=== PATIENT | female | born 1995 | race Caucasian/White ===

== ENCOUNTER 2023-08-20 12:13 | Emergency (ER) | payer BC, SELFPAY ==
[2023-08-20 12:16] VITALS: BP 135/90
--- NOTE | 2023-08-20 13:55 | ED.GENMED ---
History of Present Illness
<Rosario Okeefe PA-C - Last Filed: 08/20/23 19:34>
General
Chief Complaint: Flank Pain
Source: patient
Exam Limitations: none
Time Seen by Provider: 08/20/23 13:32
Nursing documentation reviewed up to this point in time: agreed with
History of Present Illness
History of Present Illness:
Patient is a 28-year-old female presenting for evaluation of bilateral upper flank pain. Patient states the symptoms began about 4 days ago and she describes it as an intermittent cramping type pain in her bilateral upper flanks, worse with deep
inspiration. She had a low-grade temp yesterday of 100.1F. Patient denies any known inciting trauma. Patient denies any associated chest pain, shortness of breath, lightheadedness, dizziness. Patient denies any current urinary symptoms. Patient
denies any abdominal pain. Patient denies any pain in her lower extremities. Patient does note that about 2 weeks ago she had a few days of urinary frequency and dysuria for which she had a telehealth appointment with her primary care provider who
prescribed a 5-day course of Macrobid. She took 4 days ago but due to nausea/vomiting she stopped the course early. Patient states that the urinary symptoms have resolved.
Of note�patient does report an involved ankle surgery occurring about 5 months ago for which she was immobilized until the end of this past May. She has no known or personal history of blood clots or clotting disorders.
Review of Systems
<Rosario Okeefe PA-C - Last Filed: 08/20/23 19:34>
Review of Systems
Allergies reviewed?: Yes
All Other Systems: ROS reviewed and negative except as documented in HPI and ROS
Phy Exam
<Rosario Okeefe PA-C - Last Filed: 08/20/23 19:34>
Physical Exam
Physical Exam:
Vitals: Patient's vital signs are stable. Afebrile
General: Patient is well appearing, no acute distress. Nontoxic-appearing
Skin: Warm and dry, no rashes or lesions
Head: Normocephalic, atraumatic
Eyes: Sclera nonicteric. EOMs intact. No nystagmus.
Throat: Protecting airway. Uvula midline
Neck: Normal ROM, no cervical spine tenderness, no meningismus
Cardiac: Regular rate and rhythm, no murmurs.
Pulm: Normal respiratory effort, no wheezes, rales, rhonchi heard on exam. No reproducible tenderness over bilateral anterior/posterior ribs
Abdomen: Abdomen soft. No abdominal tenderness. No CVA tenderness bilaterally
Extremities: No evidence of cyanosis or edema. Great distal pulses. Well-healing surgical scars of left ankle.
Neuro: AAOx3. CN II-XII intact. No focal neurologic deficits.
Psychiatric: Normal affect.
Course
<Rosario Okeefe PA-C - Last Filed: 08/20/23 19:34>
Orders/Labs/Results
Orders:
Orders
08/20/23 12:18
Electrocardiogram (*1) Urgent
Reason for Study: Palpitations
EKG- Treatment ONCE
08/20/23 13:09
Urinalysis Reflex To Culture Urgent
Date Specimen was Collected: 08/20/23
Time Specimen was Collected: 13:08
Urine Microscopic Reflex Cult Urgent
08/20/23 13:54
Ketorolac [Toradol] 15 mg IV NOW STA
08/20/23 13:55
Test Result ONCE
08/20/23 14:07
Comprehensive Metabolic Panel Urgent
D-Dimer Urgent
HCG, Serum Qualitative Screen Urgent
08/20/23 15:19
CT Chest Pe Study Urgent
Comment:
Reason For Exam: b/l pleuritic upper flank pain; elevated d-dimer
08/20/23 15:25
Complete Blood Count/With Diff Routine
08/20/23 18:03
Cefdinir [Omnicef] 300 mg PO NOW STA
Abnormal Lab Results
08/20/23 08/20/23 08/20/23
13:09 14:07 15:25
WBC 12.4 H 10^3/uL
(4.8-10.8)
RBC 4.15 L 10^6/uL
(4.20-5.40)
Hct 35.1 L %
(37.0-47.0)
Absolute Neuts (auto) 7.3 H 10^3/uL
(1.4-6.5)
Absolute Monos (auto) 1.3 H 10^3/uL
(0.1-0.6)
Monocytes % 10.4 H %
(1.7-9.3)
D-Dimer 0.57 H ug/mlFEU
(0.00-0.50)
Leukocyte Esterase Rfl Trace A
(Negative)
08/20/23 15:25
08/20/23 14:07
Vital Signs
Initial and Last Documented VS:
Initial Vital Signs
Temp Pulse Resp BP Pulse Ox
98.8 F 96 18 135/90 96
08/20/23 12:16 08/20/23 12:16 08/20/23 12:16 08/20/23 12:16 08/20/23 12:16
Last Documented Vital Signs
Temp Pulse Resp BP Pulse Ox
98.8 F 70 18 122/71 99
08/20/23 12:16 08/20/23 18:04 08/20/23 18:04 08/20/23 18:04 08/20/23 18:04
<Jaxson Harris MD - Last Filed: 08/20/23 19:24>
Orders/Labs/Results
Orders:
Orders
08/20/23 12:18
Electrocardiogram (*1) Urgent
Reason for Study: Palpitations
EKG- Treatment ONCE
08/20/23 13:09
Urinalysis Reflex To Culture Urgent
Date Specimen was Collected: 08/20/23
Time Specimen was Collected: 13:08
Urine Microscopic Reflex Cult Urgent
08/20/23 13:54
Ketorolac [Toradol] 15 mg IV NOW STA
08/20/23 13:55
Test Result ONCE
08/20/23 14:07
Comprehensive Metabolic Panel Urgent
D-Dimer Urgent
HCG, Serum Qualitative Screen Urgent
08/20/23 15:19
CT Chest Pe Study Urgent
Comment:
Reason For Exam: b/l pleuritic upper flank pain; elevated d-dimer
08/20/23 15:25
Complete Blood Count/With Diff Routine
08/20/23 18:03
Cefdinir [Omnicef] 300 mg PO NOW STA
Abnormal Lab Results
08/20/23 08/20/23 08/20/23
13:09 14:07 15:25
WBC 12.4 H 10^3/uL
(4.8-10.8)
RBC 4.15 L 10^6/uL
(4.20-5.40)
Hct 35.1 L %
(37.0-47.0)
Absolute Neuts (auto) 7.3 H 10^3/uL
(1.4-6.5)
Absolute Monos (auto) 1.3 H 10^3/uL
(0.1-0.6)
Monocytes % 10.4 H %
(1.7-9.3)
D-Dimer 0.57 H ug/mlFEU
(0.00-0.50)
Leukocyte Esterase Rfl Trace A
(Negative)
08/20/23 15:25
08/20/23 14:07
Vital Signs
Initial and Last Documented VS:
Initial Vital Signs
Temp Pulse Resp BP Pulse Ox
98.8 F 96 18 135/90 96
08/20/23 12:16 08/20/23 12:16 08/20/23 12:16 08/20/23 12:16 08/20/23 12:16
Last Documented Vital Signs
Temp Pulse Resp BP Pulse Ox
98.8 F 70 18 122/71 99
08/20/23 12:16 08/20/23 18:04 08/20/23 18:04 08/20/23 18:04 08/20/23 18:04
<Rosario Okeefe PA-C - Last Filed: 08/20/23 19:34>
MDM/Problems Addressed
Differential Diagnosis Includes:
Not limited to: Muscle strain, muscle spasm, pyelonephritis, UTI, kidney stone, PE
MDM/Problems Addressed:
20-year-old female presenting with bilateral left flank discomfort for the past 4 to 5 days. Patient did have recently incomplete treated UTI due to nausea/vomiting associated with Macrobid. Patient states pain is somewhat pleuritic in nature. No
other associated symptoms. Urinary symptoms have improved. Vital signs are stable. Physical exam as above. Will obtain basic labs and urinalysis. Will send urine culture. Given recent ankle surgery and immobilization for many months in
conjunction with pleuritic nature of pain�will check D-dimer. Suspect symptoms are likely incompletely treated UTI. Will give Toradol.
Patient has noticed some improvement Toradol. Labs reviewed. Mild leukocytosis of 12.4. Otherwise no clinically significant abnormalities on chemistry panel. D-dimer was very mildly elevated to 0.57. Will check CT a chest to ensure no pulmonary
embolism.
PE study without any signs of pulmonary embolism or acute abnormalities in the chest. Urine does not show any signs of current infection although given recent antibiotics�will send urine culture.
Workup your essentially normal. Will treat for possible upper urinary tract infection with Omnicef given symptoms and recent incompletely treated UTI. Return precautions discussed. patient stable for discharge. Patient will follow-up with PCP.
Chronic conditions affecting care:
N/A
Acute Exacerbation and/or Progression of Chronic Illness:
N/A
<Rosario Okeefe PA-C - Last Filed: 08/20/23 19:34>
*Radiology
Radiology exam reviewed: radiology read reviewed
*Pulse Oximetry
Patient hypoxic: no
*EKG
Interpreted by ED Provider?: Yes
EKG Intrepretation Date: 08/20/23
Interpretation: normal
Comparison EKG: no comparison EKG present
Heart Rate: 90
Rate: normal
Rhythm: sinus
Ischemia: no ischemia
*End Finder Twisting Department Interpretation
Rate: End F[facility] Twisting [facility]- N/A
*Critical Care Note
Total Time (30-74mins, 75-104mins- exclusive of procedures): Not Applicable
ED Attending Note
<Rosario Okeefe PA-C - Last Filed: 08/20/23 19:34>
-
Portions of this chart may have been created with voice recognition software.� Occasional wrong word or��sound alike� substitutions may have occurred due to the inherent limitations of voice recognition software.
<Jaxson Harris MD - Last Filed: 08/20/23 19:24>
ED Attending Note
Patient seen and examined by attending physician: Yes
ED Attending Note:
Patient presents to ED secondary to right flank pain, intermittent, over the past 4 days, along with fever of 100.0 yesterday. Of note, 2 weeks ago, patient was experiencing dysuria and urinary frequency. Patient was evaluated by her primary care
physician and was started on Macrobid. However, after 4 days, patient stopped taking antibiotics, as she was having side effects. However, after taking medication for 4 days, her urinary symptoms resolved completely, and has not returned. As
patient started to have flank pain along with low-grade fever yesterday, patient wanted to make sure that she did not have kidney infection. Denies nausea or vomiting. Denies diarrhea. Denies fever or chills today. Denies loss of appetite.
Denies recent injury.
Physical Exam
General: no apparent distress, not acutely ill. afebrile
Head: nc/at. eomi
Neck: supple. no meningeal signs.
Heart: s1/s2 regular rate and rhythm, no murmur. equal radial pulses.
Lungs: no acute respiratory distress. clear bilaterally
Abdomen: normal bowel sounds. not tender. no cva tenderness
Neuro: alert and oriented. no focal neurological deficits
Skin: no rash
Psychiatric: well kept. interactive and cooperative
Extremities: no edema. no calf tenderness.
Patient with an unremarkable workup in ED, including blood work and urinalysis. However, in light of patient's presenting symptoms, there is concern for potential will be in pleated treated UTI. As such, with urine culture and blood culture
pending, patient be started on 5-day course of Omnicef, with regards to follow-up PCP for reevaluation.
Discharge Plan
Departure
Patient Disposition: Home (Routine Discharge)
Date of Disposition: 08/20/23
Time of Disposition: 18:06
Patient with high blood pressure during this ER visit?: Yes
Condition: Good
Covid-19: Not Applicable
Discharge Problem:
Bilateral flank pain
Instructions: Flank Pain (DC), Urinary Tract Infection, Adult ED, BLOOD PRESSURE
Prescriptions:
New
cefdinir 300 mg capsule
300 mg PO BID 10 Days Qty: 20 0RF
Referrals:
UNKNOWN - PT DOES,NOT KNOW [Family Provider] -
Activity Restrictions/Additional Instructions:
RETURN TO THE EMERGENCY DEPARTMENT WITH ANY FEVERS, CHILLS, SEVERE FLANK PAIN, CHEST PAIN, SHORTNESS OF BREATH, INTRACTABLE NAUSEA/VOMITING, SEVERE ABDOMINAL PAIN, WORSENING IN CURRENT SYMPTOMS, OR ANY OTHER CONCERNS
-Your CT scan showed no evidence of pulmonary emboli today. It is possible that your symptoms are related to incompletely treated urinary tract infection. We will start you on an antibiotic for the next 10 days. You should take this twice a day.
You did receive your first dose while in the emergency department. It is important that you finish this course of antibiotics. Stay well-hydrated. Take Motrin/Tylenol as needed for fever/discomfort.
-You should follow-up with your primary care provider for further evaluation/management within a week to ensure symptoms are improving. It is important to monitor your symptoms closely return with any acute worsening or new symptoms.
Interventions
Interventions:
*Risk Screen - Suicide Last Done: 08/20/23 12:16
*General Assessment Last Done: 08/20/23 12:16
*Neglect/Abuse Screening Last Done: 08/20/23 12:16
ED- Fall Risk Assessment Last Done: 08/20/23 18:30
*ED COVID-19 Vaccine History Last Done: 08/20/23 12:16
*Nursing Disposition Last Done: 08/20/23 18:30
PD-Vtjplw-Ghcgmpqply Assessment Last Done: 08/20/23 13:21
ED-Female Genitourinary Assessment Last Done: 08/20/23 13:21
Discharge Date and Time
Discharge Date/Time: 08/20/23 18:37
Print Language: ISRAELI
[2023-08-20] MEDS: TORADOL 15 MG IV (14:02)
[2023-08-20 14:29] LABS: HCG, Serum Qualitative Screen Negative
[2023-08-20 14:33] LABS: ALT (SGPT) 19 U/L (0-35); AST (SGOT) 24 U/L (14-36); Alkaline Phosphatase 117 U/L (38-126); Blood Urea Nitrogen 15 mg/dl (7-17); Calcium 9.3 mg/dl (8.4-10.2); Carbon Dioxide 24 mmol/L (22-30); Chloride 107 mmol/L (98-107); D-Dimer 0.57 ug/mlFEU (0.00-0.50); Glucose 91 mg/dl (70-99); Potassium 4.2 mmol/L (3.5-5.1); Sodium 136 mmol/L (135-145); Total Bilirubin 0.5 mg/dl (0.2-1.3); Total Protein 6.9 g/dl (6.3-8.2); eGFR > 60.00
[2023-08-20 14:40] LABS: Urine Albumin Negative (Neg - Trace); Urine Bilirubin Negative (Negative); Urine Character Clear (Clear); Urine Color Yellow; Urine Glucose Negative (Negative); Urine Ketone Negative (Negative); Urine Leukocyte Trace (Negative); Urine Nitrite Negative (Negative); Urine Occult Blood Negative (Negative); Urine Urobilinogen Negative (Neg - 1+)
[2023-08-20 14:56] LABS: Urine Red Blood Cell 0-2 /HPF (0-2); Urine White Cell 0-2 /HPF (0-5)
[2023-08-20 15:35] LABS: % Eosinophils 3.9 % (0-6); % Immature Granulocytes 0.3 % (0-0.5); % Lymphocytes 26.1 % (20.5-51.1); % Monocytes 10.4 % (1.7-9.3); % Neutrophils 58.3 % (42.2-75.2); Absolute Basophils 0.1 10^3/uL (0-0.2); Absolute Eosinophils 0.5 10^3/uL (0-0.7); Absolute Lymphocytes 3.3 10^3/uL (1.2-3.4); Absolute Monocytes 1.3 10^3/uL (0.1-0.6); Absolute Neutrophils 7.3 10^3/uL (1.4-6.5); Hematocrit 35.1 % (37.0-47.0); Hemoglobin 12.4 g/dL (12.0-16.0); Mean Corp Hgb Conc. 35.3 g/dL (33.0-37.0); Mean Corpuscular Hgb 29.9 pg (27.0-31.0); Mean Corpuscular Volume 84.6 fL (81.0-99.0); Mean Platelet Volume 9.6 fL (7.4-10.4); Nucleated Red Blood Cells % 0 %; Platelet Count 310 10^3/uL (130-400); Red Blood Cell Count 4.15 10^6/uL (4.20-5.40); Red Cell Dist. Width 13.2 % (11.5-14.5); White Blood Cell Count 12.4 10^3/uL (4.8-10.8)
[2023-08-20 18:04] VITALS: BP 122/71
[2023-08-20] MEDS: OMNICEF 300 MG PO (18:15)
== END 2023-08-20 18:37 | disposition home or self-care (01) ==
LOC: EMR 12:13
PROVIDERS: Physician Assistant; EMERGENCY PHYSICIAN Emergency Medicine
DX: R10.9 Unspecified abdominal pain (principal); Z87.440 Personal history of urinary (tract) infections
CPT/HCPCS: 99283; 96374; 71275; 80053; 81003; 81015; 84703; 85025; 85379; 93005; Q9967